=== PATIENT | female | born 1980 | race African-American/Black ===

== ENCOUNTER 2024-01-16 00:59 | Inpatient (IN) | payer MEDICAID ==
[~2024-01-16] VITALS: Ht 170.2 cm; Wt 80.9 kg
[2024-01-16] VITALS (10 sets, daily range): BP systolic 100–139; BP diastolic 58–74; PULSE 52–92; RESP 16–20; TEMP 97.7–99.1; O2SAT 97–100
--- NOTE | 2024-01-16 01:28 | ED.PDOC ---
History of Present Illness HPI Comments 43-year-old female who came to ER for abdominal pain. Patient states she woke up due to sudden onset sharp, constant, right upper quadrant abdominal pain, nonradiating. Had a single episode nausea and vomiting. States right upper quadrant is tender to touch, and worsens with movements and deep breathing. Patient is status post gastric sleeve, last May, status post C-sections. Chief Complaint: Abdominal pain Time Seen by MD: 01:28 Reviewed Notes: Nurses Notes Allergies: Coded Allergies: Ibuprofen (Verified Allergy, Unknown, 01/16/24) Latex (Verified Allergy, Unknown, 01/16/24) Information Source: Patient Mode of Arrival: Ambulatory Severity: Moderate Timing: Hours Duration: Since onset Prehospital treatment: None Past Medical History Past Medical History (Other): Chronic back pain, degenerative joint disease Surgical History: Surgical History (Other): Gastric sleeve [employer]OR OF [employer]ICAL SERVICES History: Denies all [employer] OF [employer]ICAL SERVICES Hx Family History Family History: Reviewed,noncontributory to illness Social History Smoker: Non-Smoker Alcohol: Denies ETOH Use Drugs: Denies Drug Use Lives In: Home Constitutional: denies: chills, diaphoresis, fatigue, fever, malaise, sweats, weakness, others EENTM: denies: blurred vision, double vision, ear bleeding, ear discharge, ear drainage, ear pain, ear ringing, eye pain, eye redness, hearing loss, mouth pain, mouth swelling, nasal discharge, nose bleeding, nose congestion, nose pain, photophobia, tearing, throat pain, throat swelling, voice changes, others Respiratory: denies: cough, hemoptysis, orthopnea, SOB at rest, shortness of breath, SOB with excertion, stridor, wheezing, others Cardiovascular: denies: chest pain, dizzy spells, diaphoresis, Dyspnea on exertion, edema, irregular heart beat, left arm pain, lightheadedness, palpitations, PND, syncope, others Gastrointestinal: reports: abdominal pain; denies: abdomen distended, blood streaked bowels, constipated, diarrhea, dysphagia, difficulty swallowing, hematemesis, melena, nausea, poor appetite, poor fluid intake, rectal bleeding, rectal pain, vomiting, others Genitourinary: denies: abnormal vagina bleeding, burning, dyspareunia, dysuria, flank pain, frequency, hematuria, incontinence, pain, , vagina discharge, urgency, others Neurological: denies: dizziness, fainting, headache, left sided numbness, left sided weakness, numbness, paresthesia, pre-existing deficit, right sided numbness, right sided weakness, seizure, speech problems, tingling, tremors, weakness, others Musculoskeletal: denies: back pain, gout, joint pain, joint swelling, muscle pain, muscle stiffness, neck pain, others Integumetry: denies: bruises, change in color, change in hair/nails, dryness, laceration, lesions, lumps, rash, wounds, others Allergic/Immunocompromised: denies: Difficulty Healing, Frequent Infections, Hives, Itching, others Hematologic/Lymphatic: denies: anemia, blood clots, easy bleeding, easy bruising, swollen glands, others Endocrine: denies: excessive hunger, excessive sweating, excessive thirst, excessive urination, flushing, intolerance to cold, intolerance to heat, unexplained weight gain, unexplained weight loss, others Psychiatric: denies: anxiety, bipolar disorder, depression, hopeless, panic disorder, schizophrenia, sleepless, suicidal, others Physical Exam General Appearance: No Apparent Distress, Normal HEENT: Normal ENT Inspection, Pharynx Normal, TMs Normal Neck: Full Range of Motion, Non-Tender, Normal, Normal Inspection Respiratory: Chest Non-Tender, Lungs Clear, No Accessory Muscle Use, No Respiratory Distress, Normal Breath Sounds Cardiovascular: No Edema, No JVD, No Murmur, No Gallop, Normal Peripheral Pulses, Regular Rate/Rhythm Breast Exam: Deferred Gastrointestinal: No Organomegaly, Non Tender, No Pulsatile Mass, Normal Bowel Sounds, Soft Genitalia: Deferred Pelvic: Deferred Rectal: Deferred Extremities: No calf tenderness, Normal capillary refill, Normal inspection, Normal range of motion, Non-tender, No pedal edema Musculoskeletal : Apperance: Normal Neurologic: Alert, lpn instructor II-XII nml as Tested, No Motor Deficits, Normal Affect, Normal Mood, No Sensory Deficits Cerebellar Function: Normal Reflexes: Normal Skin: Dry, Normal Color, Warm Lymphatic: No Adenopathy Was a procedure done? Was a procedure done?: No Differential Dx Considerations may include: Musculoskeletal pain, gastritis, gallstones X-Ray, Labs, Meds, VS Vital Signs Date Time Temp Pulse Resp B/P (MAP) Pulse Ox O2 Delivery O2 Flow Rate FiO2 11/23/24 08:00 54 18 98 Room Air* 0 01/16/24 06:44 58 16 108/67 (81) 100 01/16/24 04:17 70 16 100 Room Air* 0 21 01/16/24 04:17 70 16 113/76 (88) 100 01/16/24 01:08 97.5 71 16 110/74 (86) 100 Lab Test 01/16/24 01:40 01/16/24 01:14 Range/Units White Blood Count 8.6 4.4-10.8 10^3/uL Red Blood Count 4.04 4.0-5.20 10^6/uL Hemoglobin 11.4 L 12.2-16.2 g/dL Hematocrit 34.5 L 36.0-46.0 % Mean Corpuscular Volume 85.2 80.0-100.0 fL Mean Corpuscular Hemoglobin 28.2 28.0-32.0 pg Mean Corpuscular Hemoglobin Concent 33.1 32.0-36.0 g/dL Red Cell Distribution Width 16.3 H 11.8-14.3 % Platelet Count 252 140-450 10^3/uL Mean Platelet Volume 8.9 6.9-10.8 fL Neutrophils (%) (Auto) 49.2 37.0-80.0 % Lymphocytes (%) (Auto) 41.1 10.0-50.0 % Monocytes (%) (Auto) 6.2 0.0-12.0 % Eosinophils (%) (Auto) 2.8 0.0-7.0 % Basophils (%) (Auto) 0.7 0.0-2.0 % Neutrophils # (Auto) 4.2 1.6-8.6 10 ^3/uL Lymphocytes # (Auto) 3.5 0.4-5.4 10 ^3/uL Monocytes # (Auto) 0.5 0-1.3 10 ^3/uL Eosinophils # (Auto) 0.2 0-0.8 10 ^3/uL Basophils # (Auto) 0.1 0-0.2 10 ^3/uL Nucleated Red Blood Cells 0.1 % Sodium Level 142 136-145 mmol/L Potassium Level 3.9 3.5-5.1 mmol/L Chloride Level 111 H 98-107 mmol/L Carbon Dioxide Level 23 20-31 mmol/L Anion Gap 8 5-15 Blood Urea Nitrogen 9 9-23 mg/dL Creatinine 0.67 0.550-1.02 mg/dL Glomerular Filtration Rate Calc 113 >90 mL/min BUN/Creatinine Ratio 13.4 10.0-20.0 Serum Glucose 118 H 74-106 mg/dL Calcium Level 9.3 8.7-10.4 mg/dL Total Bilirubin 0.9 0.2-1.0 mg/dL Aspartate Amino Transferase (AST) 47 H 13-40 U/L Alanine Aminotransferase (ALT) 44 H 7-40 U/L Alkaline Phosphatase 64 46-116 U/L Total Protein 6.1 5.7-8.2 g/dL Albumin 4.1 3.2-4.8 g/dL Lipase 37 12-53 U/L Beta HCG, Quantitative 0.1 L 1.5-4.2 mIU/mL Urine Color Yellow Yellow Urine Clarity Turbid H Clear Urine pH 5.0 5.0-9.0 Urine Specific [place] 1.031 1.001-1.035 Urine Protein Trace H Negative Urine Ketones Trace Negative Urine Blood Negative Negative /uL Urine Nitrite Negative Negative Urine Bilirubin Negative Negative Urine Urobilinogen 3 H Negative mg/dL Urine Leukocyte Esterase Trace Negative /uL Urine RBC <1 0 - 4 /hpf Urine WBC 3 0 - 5 /hpf Urine Squamous Epithelial Cells Mod <5 /hpf Urine Bacteria None seen None Seen /hpf Urine Mucus Few None Seen Urine Glucose Normal Normal mg/dL Current Medications Medications (Trade) Dose Ordered Sig/Bolivar Route Start Time Stop Time Status Last Admin Ondansetron HCl (Zofran Po) 4 mg ONCE ONCE PO 01/16/24 01:30 01/16/24 01:31 DC 01/16/24 04:23 Famotidine (Pepcid Tablet) 40 mg ONCE ONCE PO 01/16/24 01:30 01/16/24 01:31 DC 01/16/24 04:23 Al Hydrox/Mg Hydrox/Simethicone (Maalox Plus) 15 ml ONCE ONCE PO 01/16/24 01:30 01/16/24 01:31 DC 01/16/24 04:23 Procedure: CT CT AB PEL WO CON-NO ORAL OR IV 01/16/2024 02:34 AM Indication: RIGHT FLANK PAIN Comparison Study: None available at time of dictation. Technique: Axial images of the abdomen and pelvis without contrast were obtained and reformatted in coronal and sagittal planes. All CT scans at this medical facility are performed using dose modulation techniques as appropriate to a performed exam including the following: Automated exposure control was utilized; adjustment of the MA and/or KV according to patient size; and use of iterative reconstruction technique. CT Dose: Dose-length product is 598.4 mGy*cm FINDINGS: Imaged portions of the lung bases appear unremarkable. Examination is limited given paucity of bowel gas and lack of intravenous contrast. The spleen, and pancreas appear unremarkable. The gallbladder is prominent measuring 4.2 cm in diameter. The common bile duct is prominent measuring 0.9 cm in the pancreatic head. Central intrahepatic biliary radicles appear mildly pro minent. Focal hypodensity in the left medial hepatic lobe measuring 1.4 cm, indeterminate. No evidence of renal calculus. 2.2 cm hypodensity in the left kidney likely a cyst. No evidence of hydronephrosis. There is a 2 mm punctate calculus along the posterior aspect of the urinary bladder just proximal to the expected location of the ureterovesicular junction No evidence of bowel obstruction or focal bowel wall thickening. Moderate intracolonic stool and gas. Postsurgical changes along the stomach. Bilateral cystic lesions in the adnexa measuring up to 3.9 cm on the left. No free pelvic fluid or evidence of free air. No suspicious osseous lesion. IMPRESSION: 1. Limited examination given paucity of intra-abdominal bowel gas and lack of intravenous contrast. 2. Prominent gallbladder and common bile duct without wall thickening or evidence of cholelithiasis by CT. Right upper quadrant ultrasound is recommended. 3. 2 mm calculus along the posterior right urinary bladder, indeterminate for ureteral calculus, however no secondary findings of hydronephrosis 4. Bilateral cystic adnexal lesions, may represent physiologic cysts, pelvic ultrasound is recommended. 5. Indeterminate hypodensity within the right hepatic lobe, CT with contrast would be of benefit. Time of 1ST Reevaluation: 01:21 Reevaluation 1ST: Unchanged Time of 2ND Reevaluation: 03:34 Reevaluation 2ND: Unchanged (patient continues to have pain, will admit for GB ultrasound and Gen Surg consult) Patient Education/Counseling: Diagnosis, Treatment Family Education/Counseling: No Family Present Departure 1 Departure Time of Disposition: 04:30 Impression: Primary Impression: Acute cholangitis due to calculus of bile duct with obstruction Disposition: ADMITTED INPATIENT Condition: Guarded Discharged With: Self Critical Care Note Critical Care Time?: No Stability Stability form required: No Heart Score Heart Score: Heart Score Response (Comments) Value History N/A 0 EKG N/A 0 Age N/A 0 Risk Factors N/A 0 Troponin N/A 0 Total 0 I personally scribed for CHARLA CAPELLAN MD ([email or web address]) on 01/16/24 at 01:28. Electronically submitted by Cirilo Valdez ([facility]). I personally scribed for CHARLA CAPELLAN MD ([email or web address]) on 01/16/24 at 05:08. Electronically submitted by Cirilo Valdez ([facility]). CHARLA CAPELLAN MD Jan 16, 2024 01:28
[2024-01-16 01:48] LABS: Basophils # (auto) 0.1 10 ^3/uL (0-0.2); Basophils % (auto) 0.7 % (0.0-2.0); Eosinophils # (auto) 0.2 10 ^3/uL (0-0.8); Eosinophils % (auto) 2.8 % (0.0-7.0); Hematocrit 34.5 % (36.0-46.0); Hemoglobin 11.4 g/dL (12.2-16.2); Lymphocytes # (auto) 3.5 10 ^3/uL (0.4-5.4); Lymphocytes % (auto) 41.1 % (10.0-50.0); Mean Corpuscular Hemoglobin 28.2 pg (28.0-32.0); Mean Corpuscular Hgb Conc. 33.1 g/dL (32.0-36.0); Mean Corpuscular Volume 85.2 fL (80.0-100.0); Monocytes # (auto) 0.5 10 ^3/uL (0-1.3); Monocytes % (auto) 6.2 % (0.0-12.0); Neutrophils # (auto) 4.2 10 ^3/uL (1.6-8.6); Neutrophils % (auto) 49.2 % (37.0-80.0); Nucleated Red Blood Cells % 0.1 %; Platelet Count (auto) 252 10^3/uL (140-450); Red Blood Cells 4.04 10^6/uL (4.0-5.20); Red Cell Distribution Width 16.3 % (11.8-14.3); White Blood Cell 8.6 10^3/uL (4.4-10.8)
[2024-01-16 01:48] LABS: Urine Bacteria None Seen /hpf (None Seen)
[2024-01-16 01:54] LABS: Urine Blood Negative /uL (Negative); Urine Clarity Turbid (Clear); Urine Color Yellow (Yellow); Urine Mucus FEW (None Seen); Urine Protein, UAD TRACE (Negative); Urine Specific Gravity 1.031 (1.001-1.035); Urine Urobilinogen 3 mg/dL (Negative); Urine WBC 3 /hpf (0 - 5)
[2024-01-16 02:06] LABS: Alanine Aminotransferase 44 U/L (7-40); Albumin 4.1 g/dL (3.2-4.8); Alkaline Phosphatase 64 U/L (46-116); Anion Gap 8 (5-15); Aspartate Aminotransferase 47 U/L (13-40); BUN/Creatinine Ratio 13.4 (10.0-20.0); Blood Urea Nitrogen 9 mg/dL (9-23); Calcium 9.3 mg/dL (8.7-10.4); Carbon Dioxide 23 mmol/L (20-31); Chloride 111 mmol/L (98-107); Glucose 118 mg/dL (74-106); Lipase 37 U/L (12-53); Potassium 3.9 mmol/L (3.5-5.1); Sodium 142 mmol/L (136-145)
[2024-01-16 02:07] LABS: Bilirubin, Total 0.9 mg/dL (0.2-1.0); Total Protein 6.1 g/dL (5.7-8.2)
[2024-01-16] MEDS: FAMOTIDINE 20 MG TAB PO ONE (04:23)
[2024-01-16] MEDS: ONDANSETRON ODT 4 MG TAB PO ONE (04:23)
[2024-01-16] MEDS: MAALOX PLUS or MAALOX 30 ML PO ONE (04:23)
--- NOTE | 2024-01-16 04:51 | DVH ---
Procedure: CT CT AB PEL WO CON-NO ORAL OR IV 01/16/2024 02:34 AM Indication: RIGHT FLANK PAIN Comparison Study: None available at time of dictation. Technique: Axial images of the abdomen and pelvis without contrast were obtained and reformatted in coronal and sagittal planes. All CT scans at this medical facility are performed using dose modulation techniques as appropriate t o a performed exam including the following: Automated exposure control was utilized; adjustment of th e MA and/or KV according to patient size; and use of iterative reconstruction technique. CT Dose: Dose-length product is 598.4 mGy*cm FINDINGS: Imaged portions of the lung bases appear unremarkable. Examination is limited given paucity of bowel gas and lack of intravenous contrast. The spleen, and pancreas appear unremarkable. The gallbladder is prominent measuring 4.[address] The common bile duct is prominent measuring 0.9 cm in the pancreatic head. Central intrahepatic biliary radicles appear mildly prominent. Focal hypodensity in the left medial hepatic lobe measuring 1.4 cm, indeterminate. No evidence of renal calculus. 2.2 cm hypodensity in the left kidney likely a cyst. No evidence of h ydronephrosis. There is a 2 mm punctate calculus along the posterior aspect of the urinary bladder ju st proximal to the expected location of the ureterovesicular junction No evidence of bowel obstruction or focal bowel wall thickening. Moderate intracolonic stool and gas. Postsurgical changes along the stomach. Bilateral cystic lesions in the adnexa measuring up to 3.9 cm on the left. No free pelvic fluid or ev idence of free air. No suspicious osseous lesion. IMPRESSION: 1. Limited examination given paucity of intra-abdominal bowel gas and lack of intravenous contrast. 2. Prominent gallbladder and common bile duct without wall thickening or evidence of cholelithiasis b y CT. Right upper quadrant ultrasound is recommended. 3. 2 mm calculus along the posterior right urinary bladder, indeterminate for ureteral calculus, pavon joanne no secondary findings of hydronephrosis 4. Bilateral cystic adnexal lesions, may represent physiologic cysts, pelvic ultrasound is recommende d. 5. Indeterminate hypodensity within the right hepatic lobe, CT with contrast would be of benefit. Comparison any prior examinations would be of benefit prior to additional imaging.
--- NOTE | 2024-01-16 07:44 | DVH ---
INDICATION: RUQ pain TECHNIQUE: Multiple real-time sonographic images were obtained of the right upper quadrant. COMPARISON: None FINDINGS: The liver appears normal in echotexture. There are small dependent gallstones without evidence of per icholecystic fluid or wall thickening. The common bile duct estimated 0.6 cm. The right kidney measures 11.6 cm and appears unremarkable. Intrahepatic IVC, visualized pancreas, an d abdominal aorta appear grossly unremarkable. IMPRESSION: 1. Cholelithiasis with prominent common bile duct. No pericholecystic fluid or wall thickening.
[2024-01-16] MEDS ORDERED: HYDROcodone-ACET 5/325MG TAB PO PRN (08:15)
[2024-01-16] MEDS ORDERED: ACETAMINOPHEN 325 MG TAB PO PRN (08:15)
[2024-01-16] MEDS ORDERED: DOCUSATE SOD 100 MG CAP PO PRN (08:15)
[2024-01-16] MEDS ORDERED: TEMAZEPAM 15 MG CAP PO PRN (08:15)
[2024-01-16] MEDS ORDERED: DEXTROSE (50%) 50ML SYRG IV PRN (08:15)
[2024-01-16] MEDS: metroNIDAZOLE 500MG/100ML 100 ML IV SCH (08:15)
[2024-01-16] MEDS ORDERED: LORazepam 0.5 MG TAB PO PRN (08:15)
[2024-01-16] MEDS: SODIUM CHLORIDE 0.9% 1,000 ML IV SCH (08:42)
--- NOTE | 2024-01-16 09:16 | DVHHP2 ---
History of Present Illness Reason for Visit: abdominal pain History of Present Illness 43 yo obese patient evaluated in the Ed with abdominal pain evaluation in the ed suggested suspected acute jane patient recommended for admission and evaluation and continued treatment Review of Systems Constitutional: Yes: Weakness; No: Fever, Chills, Sweats, Malaise, Other Eyes: No: Pain, Vision change, Conjunctivae inflammation, Eyelid inflammation, Other, Redness ENT: No: Ear pain, Ear discharge, Nose pain, Nose discharge, Nose congestion, Mouth pain, Mouth swelling, Throat pain, Throat swelling, Other Respiratory: No: Cough, Dry, Shortness of breath, SOB with excertion, Wheezing, Hemoptysis, Pleuritic Pain, Sputum, Wheezing, Other Cardiovascular: No: Chest Pain, Palpitations, Orthopnea, Paroxysmal Noc. Dyspnea, Edema, Lt Headedness, Other Gastrointestinal: Vomiting, Abdominal Pain; No: Nausea, Diarrhea, Constipation, Melena, Hematochezia, Other Genitourinary: No Dysuria, No Frequency, No Incontinence, No Hematuria, No Retention, No Other Musculoskeletal: No: other, neck pain, shoulder pain, arm pain, back pain, hand pain, leg pain, foot pain Skin: No: Rash, Lesions, Jaundice, Bruising, Other Neurological: No: Weakness, Numbness, Incoordination, Change in speech, Confusion, Seizures, Other Allergies: Coded Allergies: Ibuprofen (Verified Allergy, Unknown, 01/16/24) Latex (Verified Allergy, Unknown, 01/16/24) Medications Current Medications Medications Dose Ordered Sig/Bolivar Route Start Time Stop Time Status Last Admin Dose Admin Metronidazole 100 ml @ 100 mls/hr Q8HR IV 01/16/24 08:15 Famotidine 40 mg/ Sodium Chloride 104 ml @ 416 mls/hr ONCE IV 01/16/24 08:15 UNV Diagnostic Test (Pha) 1 strip Q6HR 01/16/24 12:00 Insulin Human Regular Q6HR SC 01/16/24 12:00 Dextrose 50 ml UD PRN IV 01/16/24 08:15 Sodium Chloride 1,000 ml @ 60 mls/hr [id number] IV 01/16/24 08:15 01/16/24 08:42 60 MLS/HR Lorazepam 0.5 mg Q6HP PRN PO 01/16/24 08:15 UNV Al Hydrox/Mg Hydrox/Simethicone 30 ml Q6HP PRN PO 01/16/24 08:15 UNV Docusate Sodium 100 mg BIDPRN PRN PO 01/16/24 08:15 Acetaminophen 650 mg Q6HP PRN PO 01/16/24 08:15 UNV Temazepam 15 mg QHSP PRN PO 01/16/24 08:15 UNV Acetaminophen/ Hydrocodone Bitart 1 tab Q4HP PRN PO 01/16/24 08:15 Ondansetron HCl 4 mg Q4HP PRN IV 01/16/24 08:15 Morphine Sulfate 2 mg Q4HPRN PRN IV 01/16/24 08:15 Exam Vital Signs Vital Signs Date Time Temp Pulse Resp B/P (MAP) Pulse Ox O2 Delivery O2 Flow Rate FiO2 01/16/24 08:54 50 18 116/75 (89) 100 01/16/24 04:17 Room Air* 0 21 01/16/24 01:08 97.5 General Appearance: Alert, Oriented X3, moderate distress HEENT: Atraumatic, PERRLA, EOMI Respiratory: Clear to auscultation, Normal air movement Cardiovascular: Regular rate, Normal S1 Abdominal: Normal bowel sounds, Soft, No tenderness, No masses Extremities: No clubbing, No cyanosis, No edema Skin: No rashes, No breakdown, No significant lesion Neuro: Normal gait, Normal speech Psych/Mental Status: Mood NL Labs/Xrays Labs Test 01/16/24 01:40 01/16/24 01:14 Range/Units White Blood Count 8.6 4.4-10.8 10^3/uL Red Blood Count 4.04 4.0-5.20 10^6/uL Hemoglobin 11.4 L 12.2-16.2 g/dL Hematocrit 34.5 L 36.0-46.0 % Mean Corpuscular Volume 85.2 80.0-100.0 fL Mean Corpuscular Hemoglobin 28.2 28.0-32.0 pg Mean Corpuscular Hemoglobin Concent 33.1 32.0-36.0 g/dL Red Cell Distribution Width 16.3 H 11.8-14.3 % Platelet Count 252 140-450 10^3/uL Mean Platelet Volume 8.9 6.9-10.8 fL Neutrophils (%) (Auto) 49.2 37.0-80.0 % Lymphocytes (%) (Auto) 41.1 10.0-50.0 % Monocytes (%) (Auto) 6.2 0.0-12.0 % Eosinophils (%) (Auto) 2.8 0.0-7.0 % Basophils (%) (Auto) 0.7 0.0-2.0 % Neutrophils # (Auto) 4.2 1.6-8.6 10 ^3/uL Lymphocytes # (Auto) 3.5 0.4-5.4 10 ^3/uL Monocytes # (Auto) 0.5 0-1.3 10 ^3/uL Eosinophils # (Auto) 0.2 0-0.8 10 ^3/uL Basophils # (Auto) 0.1 0-0.2 10 ^3/uL Nucleated Red Blood Cells 0.1 % Sodium Level 142 136-145 mmol/L Potassium Level 3.9 3.5-5.1 mmol/L Chloride Level 111 H 98-107 mmol/L Carbon Dioxide Level 23 20-31 mmol/L Anion Gap 8 5-15 Blood Urea Nitrogen 9 9-23 mg/dL Creatinine 0.67 0.550-1.02 mg/dL Glomerular Filtration Rate Calc 113 >90 mL/min BUN/Creatinine Ratio 13.4 10.0-20.0 Serum Glucose 118 H 74-106 mg/dL Calcium Level 9.3 8.7-10.4 mg/dL Total Bilirubin 0.9 0.2-1.0 mg/dL Aspartate Amino Transferase (AST) 47 H 13-40 U/L Alanine Aminotransferase (ALT) 44 H 7-40 U/L Alkaline Phosphatase 64 46-116 U/L Total Protein 6.1 5.7-8.2 g/dL Albumin 4.1 3.2-4.8 g/dL Lipase 37 12-53 U/L Beta HCG, Quantitative 0.1 L 1.5-4.2 mIU/mL Urine Color Yellow Yellow Urine Clarity Turbid H Clear Urine pH 5.0 5.0-9.0 Urine Specific [place] 1.031 1.001-1.035 Urine Protein Trace H Negative Urine Ketones Trace Negative Urine Blood Negative Negative /uL Urine Nitrite Negative Negative Urine Bilirubin Negative Negative Urine Urobilinogen 3 H Negative mg/dL Urine Leukocyte Esterase Trace Negative /uL Urine RBC <1 0 - 4 /hpf Urine WBC 3 0 - 5 /hpf Urine Squamous Epithelial Cells Mod <5 /hpf Urine Bacteria None seen None Seen /hpf Urine Mucus Few None Seen Urine Glucose Normal Normal mg/dL Assessment/Plan Assessment/Plan Admit to Med/Surg Suspected Acute Jane CT abd US Gallbladder IV hydration IV abx surgical evaluation prn pain management suspected surgical needs possible removal Plan discussed with: Patient My Orders Orders - KRISS FERNANDEZ MD Procedure Category Date Status Time Metronidazole PHA 01/16/24 In Process 500mg/100ml (Flagyl 08:15 Famotidine Injection PHA 01/16/24 Logged (Pepcid Injection) 08:15 * Surgical Consult CONS 01/16/24 Transmitted Glucose Blood PHA 01/16/24 In Process (Accu-Chek Comfort 12:00 Insulin R (Human) PHA 01/16/24 In Process (Insulin R) 12:00 Dextrose 50% Syringe PHA 01/16/24 In Process 08:15 Admit ADMIT 01/16/24 Transmitted 08:10 Code Status CODE 01/16/24 Transmitted 08:[address] [facility] 01/16/24 In Process 08:10 Review Orders [address] [facility] 01/16/24 In Process Adm. 08:10 Regular Diet DIET 01/16/24 Transmitted Breakfast Sodium Chloride 0.9% PHA 01/16/24 In Process 08:15 Lorazepam Tablet PHA 01/16/24 Logged (Ativan Tablet) 08:15 Alum & Mag PHA 01/16/24 Logged Hydrox-Simethicone 08:15 Docusate Sodium PHA 01/16/24 In Process Capsule (Colace 08:15 Acetaminophen Tablet PHA 01/16/24 Logged (Tylenol Tablet) 08:15 Temazepam (Restoril) PHA 01/16/24 Logged 08:15 Notify Md Of Changes [facility] 01/16/24 In Process From Base 08:[address] [facility] 01/16/24 In Process 08:10 Basic Metabolic Panel LAB 01/17/24 Verified 04:00 Complete Blood Count LAB 01/17/24 Verified 04:00 Patient Condition ORDERS 01/16/24 Transmitted 08:[address] [facility] 01/16/24 In Process 08:10 Hydrocodone-Acet PHA 01/16/24 In Process 5/325mg Tab ([place] 08:15 Ondansetron Hcl PHA 01/16/24 In Process (Zofran) 08:15 Morphine Sulfate PHA 01/16/24 In Process Injection 08:15 [employer] [place] 01/16/24 In Process 24 Hours 08:10 Oxygen By Nasal RT 01/16/24 Transmitted Cannula 08:10 Problem List: (1) Acute cholangitis due to calculus of bile duct with obstruction (2) Mildly obese Date of Service: Jan 16, 2024 Billing Provider: KRISS FERNANDEZ MD Common Visit Codes: [id number] INP/OBS CARE (HIGH) KRISS FERNANDEZ MD Jan 16, 2024 09:16
[2024-01-16] MEDS: InsuLIN REG 1unit/0.01ml Soln (100units/ml) SC SCH (12:00)
[2024-01-16] MEDS: ACCU-CHEK COMFORT CURVE STRIP VI SCH (12:20)
--- NOTE | 2024-01-16 20:58 | DVHPN2 ---
Assessment/Plan Assessment/Plan Progress note Subjective 53-year-old female admitted for acute cholecystitis Objective Physical exam Alert, oriented x3 PERRLA No JVD Clear breath sounds bilaterally S1-S2 regular rate and rhythm no murmur Abdomen tender, no rebound, guarding Moving all four extremities No lower extremity edema Imaging CTAP and RUQUS colelithiasis with prominent CBD Assessment and plan acute cholelithiasis with cholecystitis s/p bariatric surgery surgical consult ceft and flagyl NPO pain management IVF Replete electrolytes Diet NPO DVT prophylaxis ambulatory Plan discussed with: Patient Date of Service: Jan 16, 2024 Billing Provider: PEG THOMPSON MD Common Visit Codes: [id number] INP/OBS CARE(HIGH) PEG THOMPSON MD Jan 16, 2024 20:58
[2024-01-16] MEDS: MORPHINE SULFATE INJ 2 MG/ml SYRG IV PRN (21:52)
[2024-01-17] VITALS (8 sets, daily range): BP systolic 105–137; BP diastolic 51–73; PULSE 50–71; RESP 19–20; TEMP 97.6–98.4; O2SAT 99–100
[2024-01-17 07:25] LABS: Basophils # (auto) 0 10 ^3/uL (0-0.2); Basophils % (auto) 0.6 % (0.0-2.0); Eosinophils # (auto) 0.2 10 ^3/uL (0-0.8); Eosinophils % (auto) 2.8 % (0.0-7.0); Hematocrit 30.9 % (36.0-46.0); Hemoglobin 10.3 g/dL (12.2-16.2); Lymphocytes # (auto) 2.5 10 ^3/uL (0.4-5.4); Lymphocytes % (auto) 40.9 % (10.0-50.0); Mean Corpuscular Hemoglobin 28.7 pg (28.0-32.0); Mean Corpuscular Hgb Conc. 33.3 g/dL (32.0-36.0); Mean Corpuscular Volume 86.1 fL (80.0-100.0); Monocytes # (auto) 0.4 10 ^3/uL (0-1.3); Monocytes % (auto) 6.1 % (0.0-12.0); Neutrophils # (auto) 3.1 10 ^3/uL (1.6-8.6); Neutrophils % (auto) 49.6 % (37.0-80.0); Platelet Count (auto) 217 10^3/uL (140-450); Red Blood Cells 3.58 10^6/uL (4.0-5.20); Red Cell Distribution Width 16.4 % (11.8-14.3); White Blood Cell 6.2 10^3/uL (4.4-10.8)
[2024-01-17 07:51] LABS: Alanine Aminotransferase 89 U/L (7-40); Albumin 3.5 g/dL (3.2-4.8); Alkaline Phosphatase 64 U/L (46-116); Amylase 62 U/L (30-118); Anion Gap 6 (5-15); Aspartate Aminotransferase 38 U/L (13-40); Bilirubin, Total 1.3 mg/dL (0.2-1.0); Blood Urea Nitrogen 9 mg/dL (9-23); Carbon Dioxide 26 mmol/L (20-31); Chloride 111 mmol/L (98-107); Glucose 83 mg/dL (74-106); Potassium 4.3 mmol/L (3.5-5.1); Sodium 143 mmol/L (136-145); Total Protein 5.3 g/dL (5.7-8.2)
[2024-01-17 08:31] LABS: INR 1.09 (0.9-1.15); Partial Thromboplastin Time 27.9 SEC (24.5-34.5); Prothrombin Time 11.5 sec (9.3-11.8)
--- NOTE | 2024-01-17 10:01 | DVHINCON2 ---
Date of service: Jan 17, 2024 Allergies: Coded Allergies: Ibuprofen (Verified Allergy, Unknown, 01/16/24) Latex (Verified Allergy, Unknown, 01/16/24) Current Medications Current Medications Medications (Trade) Dose Ordered Sig/Bolivar Route PRN Reason Start Time Stop Time Status Last Admin Diagnostic Test (Pha) (Accu-Chek Comfort Curve T) 1 strip Q6HR 01/16/24 12:00 01/17/24 05:51 Insulin Human Regular (InsuLIN R) Q6HR SC 01/16/24 12:00 Vital Signs Vital Signs Date Time Temp Pulse Resp B/P (MAP) Pulse Ox O2 Delivery O2 Flow Rate FiO2 01/17/24 05:00 98.0 50 20 105/51 (69) 100 98.0 01/16/24 20:00 Room Air* 0 21 Labs/Diagnostic Data Labs Test 01/17/24 06:54 01/17/24 05:50 01/16/24 01:40 01/16/24 01:14 Range/Units White Blood Count 6.2 # 4.4-10.8 10^3/uL Red Blood Count 3.58 L 4.0-5.20 10^6/uL Hemoglobin 10.3 L 12.2-16.2 g/dL Hematocrit 30.9 #L 36.0-46.0 % Mean Corpuscular Volume 86.1 80.0-100.0 fL Mean Corpuscular Hemoglobin 28.7 28.0-32.0 pg Mean Corpuscular Hemoglobin Concent 33.3 32.0-36.0 g/dL Red Cell Distribution Width 16.4 H 11.8-14.3 % Platelet Count 217 140-450 10^3/uL Mean Platelet Volume 9.2 6.9-10.8 fL Neutrophils (%) (Auto) 49.6 37.0-80.0 % Lymphocytes (%) (Auto) 40.9 10.0-50.0 % Monocytes (%) (Auto) 6.1 0.0-12.0 % Eosinophils (%) (Auto) 2.8 0.0-7.0 % Basophils (%) (Auto) 0.6 0.0-2.0 % Neutrophils # (Auto) 3.1 1.6-8.6 10 ^3/uL Lymphocytes # (Auto) 2.5 0.4-5.4 10 ^3/uL Monocytes # (Auto) 0.4 0-1.3 10 ^3/uL Eosinophils # (Auto) 0.2 0-0.8 10 ^3/uL Basophils # (Auto) 0 0-0.2 10 ^3/uL Nucleated Red Blood Cells 0.0 % Prothrombin Time 11.5 9.3-11.8 sec Prothrombin Time INR 1.09 0.9-1.15 Activated Partial Thromboplast Time 27.9 24.5-34.5 SEC Sodium Level 143 136-145 mmol/L Potassium Level 4.3 3.5-5.1 mmol/L Chloride Level 111 H 98-107 mmol/L Carbon Dioxide Level 26 20-31 mmol/L Anion Gap 6 5-15 Blood Urea Nitrogen 9 9-23 mg/dL Creatinine 0.69 0.550-1.02 mg/dL Glomerular Filtration Rate Calc 112 >90 mL/min BUN/Creatinine Ratio 13.0 10.0-20.0 Serum Glucose 83 74-106 mg/dL Calcium Level 9.0 8.7-10.4 mg/dL Total Bilirubin 1.3 H 0.2-1.0 mg/dL Aspartate Amino Transferase (AST) 38 13-40 U/L Alanine Aminotransferase (ALT) 89 H 7-40 U/L Alkaline Phosphatase 64 46-116 U/L Total Protein 5.3 L 5.7-8.2 g/dL Albumin 3.5 3.2-4.8 g/dL Amylase Level 62 30-118 U/L POC Glucose 89 70-106 mg/dl Lipase 37 12-53 U/L Beta HCG, Quantitative 0.1 L 1.5-4.2 mIU/mL Urine Color Yellow Yellow Urine Clarity Turbid H Clear Urine pH 5.0 5.0-9.0 Urine Specific [place] 1.031 1.001-1.035 Urine Protein Trace H Negative Urine Ketones Trace Negative Urine Blood Negative Negative /uL Urine Nitrite Negative Negative Urine Bilirubin Negative Negative Urine Urobilinogen 3 H Negative mg/dL Urine Leukocyte Esterase Trace Negative /uL Urine RBC <1 0 - 4 /hpf Urine WBC 3 0 - 5 /hpf Urine Squamous Epithelial Cells Mod <5 /hpf Urine Bacteria None seen None Seen /hpf Urine Mucus Few None Seen Urine Glucose Normal Normal mg/dL Assessment 43 YEAR OLD FEMALE WITH ABDOMOINAL PAIN AND GALLSTONES "PROMINENT" BILE DUCTS NEED TO BE EVALUATED BY MEANS OF MRCP, PATIENT IS BEING FED?! NNEDS CMP ,HIDA PENDING Plan discussed with: Patient JACQUELYN CANCINO MD Jan 17, 2024 10:00
--- NOTE | 2024-01-17 15:48 | DVHPN2 ---
Subjective This is a follow up on 43-year-old female who lives has been with the hospital with a epigastric pain and right upper quadrant pain found to have cholelithiasis and dilated CBD. Patient currently came back from MRCP results are pending. Still complaining of abdominal pain. Denies any nausea vomiting. Reviewed: Care Plan Changes from previous H/P or p: No Changes Eyes: No Pain, No Vision change, No Conjunctivae inflammation, No Eyelid inflammation, No Other, No Redness ENT: No Ear pain, No Ear discharge, No Nose pain, No Nose discharge, No Nose congestion, No Mouth pain, No Mouth swelling, No Throat pain, No Throat swelling, No Other Cardiovascular: No Chest Pain, No Palpitations, No Orthopnea, No Paroxysmal Noc. Dyspnea, No Edema, No Lt Headedness, No Other Respiratory: No Cough, No Dry, No Shortness of breath, No SOB with excertion, No Wheezing, No Hemoptysis, No Pleuritic Pain, No Sputum, No Other Gastrointestinal: No Nausea; Vomiting, Abdominal Pain; No Diarrhea, No Constipation, No Melena, No Hematochezia, No Other Genitourinary: No Dysuria, No Frequency, No Incontinence, No Hematuria, No Retention, No Other Musculoskeletal: No other, No neck pain, No shoulder pain, No arm pain, No back pain, No hand pain, No leg pain, No foot pain Skin: No Rash, No Lesions, No Jaundice, No Bruising, No Other Objective Vitals Vital Signs Date Time Temp Pulse Resp B/P (MAP) Pulse Ox O2 Delivery O2 Flow Rate FiO2 01/17/24 13:00 98.0 50 19 117/72 (87) 100 98.0 01/16/24 20:00 Room Air* 0 21 Intake/Output Intake and Output 01/17/24 07:00 Intake Total 1275 ml Balance 1275 ml Intake Oral 525 ml IV Total 750 ml Exam HEENT pupils are reactive Neck is supple CV is S1-S2 regular rate and rhythm Respiratory viral clear GI posterior portion Extremity no 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 Medications Current Medications Medications Dose Ordered Sig/Bolivar Route Start Time Stop Time Status Last Admin Dose Admin Metronidazole 100 ml @ 100 mls/hr Q8HR IV 01/16/24 08:15 01/17/24 05:16 100 MLS/HR Diagnostic Test (Pha) 1 strip Q6HR 01/16/24 12:00 01/17/24 12:00 1 STRIP Insulin Human Regular Q6HR SC 01/16/24 12:00 Dextrose 50 ml UD PRN IV 01/16/24 08:15 Sodium Chloride 1,000 ml @ 60 mls/hr [id number] IV 01/16/24 08:15 01/17/24 06:47 60 MLS/HR Al Hydrox/Mg Hydrox/Simethicone 30 ml Q6HP PRN PO 01/16/24 08:15 Docusate Sodium 100 mg BIDPRN PRN PO 01/16/24 08:15 Acetaminophen 650 mg Q6HP PRN PO 01/16/24 08:15 Ondansetron HCl 4 mg Q4HP PRN IV 01/16/24 08:15 Morphine Sulfate 2 mg Q4HPRN PRN IV 01/16/24 08:15 01/16/24 21:52 2 MG Laboratory Results Laboratory Tests 01/17/24 06:54 Chemistry Test 01/17/24 06:54 Albumin 3.5 g/dL (3.2-4.8) Calcium Level 9.0 mg/dL (8.7-10.4) Total Protein 5.3 g/dL (5.7-8.2) L Coagulation Test 01/17/24 06:54 Prothrombin Time 11.5 sec (9.3-11.8) Prothrombin Time INR 1.09 (0.9-1.15) Activated Partial Thromboplast Time 27.9 SEC (24.5-34.5) LFT Test 01/17/24 06:54 Alanine Aminotransferase (ALT) 89 U/L (7-40) H Alkaline Phosphatase 64 U/L (46-116) Aspartate Amino Transferase (AST) 38 U/L (13-40) Total Bilirubin 1.3 mg/dL (0.2-1.0) H Urinalysis Test 01/16/24 01:14 Urine Color Yellow (Yellow) Urine Clarity Turbid (Clear) H Urine pH 5.0 (5.0-9.0) Urine Specific [place] 1.031 (1.001-1.035) Urine Protein Trace (Negative) H Urine Ketones Trace (Negative) Urine Blood Negative /uL (Negative) Urine Nitrite Negative (Negative) Urine Bilirubin Negative (Negative) Urine Urobilinogen 3 mg/dL (Negative) H Urine Leukocyte Esterase Trace /uL (Negative) Urine RBC <1 /hpf (0 - 4) Urine WBC 3 /hpf (0 - 5) Urine Squamous Epithelial Cells Mod /hpf (<5) Urine Bacteria None seen /hpf (None Seen) Urine Mucus Few (None Seen) Urine Glucose Normal mg/dL (Normal) Assessment/Plan Assessment/Plan 43-year-old female with no significant past medical history besides bariatric surgery initially was sent to the hospital with abdominal pain found to have 1. Abdominal pain with cholelithiasis with a dilated CBD rule out acute cholecystitis and acute choledocholithiasis 2. Symptomatic cholelithiasis 3. Dilated CBD rule out acute choledocholithiasis 4. Transaminitis -MRCP, HIDA scan follow up surgery consultation Plan discussed with: Patient Date of Service: Jan 17, 2024 Billing Provider: HAKAN CHRISTENSEN MD Common Visit Codes: [id number] INP/OBS CARE(MOD) HAKAN CHRISTENSEN MD Jan 17, 2024 15:48
--- NOTE | 2024-01-17 15:52 | DVH ---
MRCP Exam Date: 01/17/2024 02:35 PM Comparison: 01/16/2024 History: R/O CHOLEDOCHOLITHIASIS Technique: Multisequence multiplanar MRI images were obtained of the abomen. MRCP including 3D SPACE, Radial 2D slabs and SPACE 3D MIP images mL of Multihance was administered intravenously during this examination. Initial imaging is obtained without intravenous contrast. Findings: No significant pleural effusion. Adrenal glands, spleen and pancreas demonstrate no T2 hyperintense lesions. Kidneys demonstrate no hydronephrosis.m left renal T2 bright / cystic appearing lesion measuring 1.7 cm Stomach is partially distended. Small bowel loops are normal in caliber. No T2 hyperintense lesions within the liver. Liver enlarged measuring 22 cm craniocaudal. Cholelithia sis /sludge. Common bile duct measures 7 mm. Tiny amount of perihepatic fluid. Free pelvic fluid. Possible left ovarian cystic lesion. Soft tissue edema / anasarca. IMPRESSION: 1. Cholelithiasis /sludge. 2. No evidence of choledocholithiasis. 3. Free pelvic fluid. Possible left ovarian cystic lesion. Recommend pelvic ultrasound to further ronda luate. 4. Hepatomegaly. 5. Soft tissue edema / anasarca. 6. Tiny amount of perihepatic fluid.
--- NOTE | 2024-01-17 16:05 | MEDREC ---
[facility] ASP Intervention Section I [facility] ASP Intervention: Review courses of therapy (PLEASE CONSIDER ADDING CEFTRIAXONE FOR BROADER COVERAGE OF POTENTIAL INTRA-ABDOMINAL INFECTION) SRINIVAS MONTERO PHARMACIST Jan 17, 2024 16:05
--- NOTE | 2024-01-17 19:00 | DVH ---
INDICATION: pelvic free fluid TECHNIQUE: Multiple real-time grayscale transabdominal sonographic images along with color and duplex Doppler of the uterus and ovaries were obtained. COMPARISON: None FINDINGS: The uterus measures 9.6 x 5.5 x 6.8 cm. The endometrial stripe measures 0.3 cm. Right ovary measures 3.3 x 3.7 x 2.0 cm with normal Doppler color flow. Solitary simple cyst is seen in the right ovary measuring up to 1.8 cm. Left ovary measures 5.5 x 4.4 x 2.9 cm with normal Doppler color flow. Multiple left-sided simple ap pearing cysts, the largest measuring up to 3.3 cm IMPRESSION: 1. No acute findings identified. 2. Bilateral simple ovarian cysts measuring up to 1.8 cm on the right and up to 3.3 cm on the left.
[2024-01-18] VITALS (9 sets, daily range): BP systolic 101–141; BP diastolic 61–82; PULSE 44–65; RESP 15–20; TEMP 97.3–98.2; O2SAT 99–100
[2024-01-18 07:35] LABS: Alanine Aminotransferase 58 U/L (7-40); Albumin 3.2 g/dL (3.2-4.8); Alkaline Phosphatase 59 U/L (46-116); Anion Gap 7 (5-15); BUN/Creatinine Ratio 12.3 (10.0-20.0); Blood Urea Nitrogen 8 mg/dL (9-23); Calcium 8.7 mg/dL (8.7-10.4); Carbon Dioxide 24 mmol/L (20-31); Chloride 111 mmol/L (98-107); Glucose 80 mg/dL (74-106); Potassium 3.9 mmol/L (3.5-5.1); Sodium 142 mmol/L (136-145)
[2024-01-18 07:36] LABS: Aspartate Aminotransferase 19 U/L (13-40)
--- NOTE | 2024-01-18 11:04 | DVHPN2 ---
Progress Note Date Seen: Jan 18, 2024 Medical Necessity Reason Pt with a Central, PICC or Fol: No Objective vital signs Vital Sign Date Time Temp Pulse Resp B/P (MAP) Pulse Ox O2 Delivery O2 Flow Rate FiO2 01/18/24 09:02 97.6 48 16 103/64 (77) 100 97.6 01/17/24 20:00 Room Air* 0 21 Total Intake and Output 01/17/24 01/17/24 01/18/24 15:00 23:00 07:00 Intake Total 1200 ml 525 ml Balance 1200 ml 525 ml medications Current Medications Medications Dose Ordered Sig/Bolivar Route Start Time Stop Time Status Last Admin Dose Admin Metronidazole 100 ml @ 100 mls/hr Q8HR IV 01/16/24 08:15 01/18/24 05:52 100 MLS/HR Diagnostic Test (Pha) 1 strip Q6HR 01/16/24 12:00 01/18/24 05:54 1 STRIP Dextrose 50 ml UD PRN IV 01/16/24 08:15 Sodium Chloride 1,000 ml @ 60 mls/hr [id number] IV 01/16/24 08:15 01/18/24 02:16 60 MLS/HR Al Hydrox/Mg Hydrox/Simethicone 30 ml Q6HP PRN PO 01/16/24 08:15 Docusate Sodium 100 mg BIDPRN PRN PO 01/16/24 08:15 Acetaminophen 650 mg Q6HP PRN PO 01/16/24 08:15 Ondansetron HCl 4 mg Q4HP PRN IV 01/16/24 08:15 Morphine Sulfate 2 mg Q4HPRN PRN IV 01/16/24 08:15 01/17/24 21:07 2 MG laboratory and microbiology Laboratory Tests 01/18/24 06:30 01/17/24 06:54 Test 01/18/24 06:30 Range/Units Serum Glucose 80 74-106 mg/dL Problem List/Assessment/Plan Problem List/Assessment/Plan 01/18/24 HIDA scan reported to me as negative for cholecystitis, her WBC is normal, bilirubin was slightly elevated yesterday but it is bormal today, patient is insisting to have the operation today because "It may not be an emergency to you but for m"e it is because I am in f...ing pain all the time.Operation, risks and complications explained in detail. Plan discussed with: Patient JACQUELYN CANCINO MD Jan 18, 2024 11:04
[2024-01-18] MEDS: ceFAZolin 2 GM/D5W100ml 100 ML IV ONE (11:19)
[2024-01-18] MEDS ORDERED: fentaNYL CITRATE 100 MCG/2 ML VL ONE (11:47)
[2024-01-18] MEDS ORDERED: MIDAZOLAM HCL 2MG/2ML 2ml VIAL (1mg/ml) ONE (11:47)
[2024-01-18] MEDS ORDERED: MEPERIDINE HCL (50 MG/ML) 1 ML VIAL ONE (11:47)
--- NOTE | 2024-01-18 11:48 | DVH ---
CLINICAL INFORMATION: 43 years old, Female; rule out cholecystitis. Indication for prior ultrasound was right upper quadrant pain. TECHNIQUE: 4.2 mCi of Choletec were administered intravenously. Images of the upper abdomen were ob tained at 2 minute intervals up to a total time of 60 minutes. Lateral projection image also obtained at 65 minutes. COMPARISON: None FINDINGS: There is prompt gallbladder visualization. There is prompt excretion of activity from the biliary ductal system into the small bowel. There is no evidence of acute cholecystitis. IMPRESSION: No scintigraphic evidence of acute cholecystitis. No evidence of common bile duct obstruction.
[2024-01-18] MEDS ORDERED: DexAMETHasone SOD PHOS 10MG/1ML VIAL INJ ONE (11:49)
[2024-01-18] MEDS ORDERED: PROPOFOL 10 MG/ML 20 ML IV ONE (12:18)
[2024-01-18] MEDS ORDERED: ONDANSETRON HCL 4 MG/2 ML VIAL ONE (12:18)
[2024-01-18] MEDS ORDERED: SUGAMMADEX 200mg/2ml Vial (100MG/ML) IV ONE (12:18)
[2024-01-18] MEDS: LIDOCAINE W/ EPINEPHRINE 1% 20ML VIAL ONE (12:18)
[2024-01-18] MEDS: BUPIVACAINE 0.25% INJ 50ML VIAL ONE (12:18)
[2024-01-18] MEDS ORDERED: MIDAZOLAM HCL 2MG/2ML 2ml VIAL (1mg/ml) IV PRN (13:00)
[2024-01-18] MEDS: ONDANSETRON HCL 4 MG/2 ML VIAL IV ONE (13:00)
[2024-01-18] MEDS ORDERED: hydrALAZINE HCL 20 MG/ML VL IV PRN (13:00)
[2024-01-18] MEDS ORDERED: ePHEDrine SULFATE 50 MG/ML AMP IV PRN (13:00)
[2024-01-18] MEDS ORDERED: MORPHINE SULFATE 4 MG/ML SYR/VIAL IV PRN (13:00)
[2024-01-18] MEDS: HYDROmorphone HCL 2 MG/ML VL/or syr IV PRN (13:20)
[2024-01-18] MEDS: HYDROmorphone HCL 2 MG/ML VL/or syr ONE (13:25)
--- NOTE | 2024-01-18 14:43 | DVHOP ---
DATE OF SURGERY: 01/18/2024 PREOPERATIVE DIAGNOSES: Cholelithiasis, biliary colic. POSTOPERATIVE DIAGNOSES: Cholelithiasis, biliary colic. SURGEON: Elias Santiago MD PRODUCER: Nasim Nicole. ANESTHESIA: General endotracheal. ANESTHESIOLOGIST: Dr. Moffett. PROCEDURE: Laparoscopy, laparoscopic cholecystectomy. DESCRIPTION OF PROCEDURE: Under general endotracheal anesthesia, with the patient's skin prepped and draped supraumbilical incision was made and Veress needle inserted by the hanging drop technique to establish pneumoperitoneum to 15 mmHg pressure by insufflation with carbon dioxide. With the abdomen fully distended, the needle was removed and replaced with a 5 mm trocar port through which a 0-degree viewing laparoscope was inserted and under direct vision, 5 and 10 mm ports inserted through the right anterior axillary line at the level of the umbilicus and the subxiphoid skin in the midline respectively. Instrumentation was introduced and laparoscopy was performed revealing no obvious unexpected pathology. The gallbladder was placed on tension. The cystic duct was exceedingly long and the cystic duct, common duct junction was visualized. The cystic duct was traced into the hepaticocystic triangle skeletonized of scar tissues. Similarly, the cystic artery was identified, skeletonized circumferentially dissected. Both of these structures were then divided between metallic clips staying clear of the common duct and minimizing the potential for inadvertent injury to the common bile duct. Subsequently, the gallbladder was resected from its liver bed by electrocautery and traction. It was removed from the peritoneal cavity by placement in a specimen extraction bag, which was withdrawn through the subxiphoid 10 mm port site. The right upper quadrant was then profusely irrigated, irrigant was aspirated. Hemostasis was meticulously inspected and found to be complete. There was no evidence of bleeding at the termination of the procedure, either from the gallbladder fossa or from the port sites. Instrumentation was withdrawn. Pneumoperitoneum was evacuated. Fascial defect closed using ____ 2-0 Monocryl suture was used for approximation of the wound edges as were Steri-Strips and Dermabond glue. The patient remained stable throughout the procedure, left the operating room following an accurate needle and Sponge count. The patient's , Sherif was thoroughly informed at [phone]. Elias Santiago MD PF TID: [id number] RECEIPT: [id number]
[2024-01-18] MEDS: ceFAZolin 1GM/50ML 50 ML IV SCH (14:57)
[2024-01-18] MEDS: FAMOTIDINE INJECTION 40 MG in SODIUM CHL 0.9% 100 ML IV ONE (15:20)
--- NOTE | 2024-01-18 16:44 | DVHPN2 ---
Subjective This is a follow up on 43-year-old female who lives has been with the hospital with a epigastric pain and right upper quadrant pain found to have cholelithiasis and dilated CBD. Patient was status post laparoscopic cholecystectomy Reviewed: Care Plan Changes from previous H/P or p: No Changes Eyes: No Pain, No Vision change, No Conjunctivae inflammation, No Eyelid inflammation, No Other, No Redness ENT: No Ear pain, No Ear discharge, No Nose pain, No Nose discharge, No Nose congestion, No Mouth pain, No Mouth swelling, No Throat pain, No Throat swelling, No Other Cardiovascular: No Chest Pain, No Palpitations, No Orthopnea, No Paroxysmal Noc. Dyspnea, No Edema, No Lt Headedness, No Other Respiratory: No Cough, No Dry, No Shortness of breath, No SOB with excertion, No Wheezing, No Hemoptysis, No Pleuritic Pain, No Sputum, No Other Gastrointestinal: No Nausea; Vomiting, Abdominal Pain; No Diarrhea, No Constipation, No Melena, No Hematochezia, No Other Genitourinary: No Dysuria, No Frequency, No Incontinence, No Hematuria, No Retention, No Other Musculoskeletal: No other, No neck pain, No shoulder pain, No arm pain, No back pain, No hand pain, No leg pain, No foot pain Skin: No Rash, No Lesions, No Jaundice, No Bruising, No Other Objective Vitals Vital Signs Date Time Temp Pulse Resp B/P (MAP) Pulse Ox O2 Delivery O2 Flow Rate FiO2 01/18/24 16:37 97.5 47 16 122/72 (89) 99 97.5 01/18/24 12:35 Mask 7.0 01/18/24 08:00 21 Intake/Output Intake and Output 01/18/24 07:00 Intake Total 1725 ml Balance 1725 ml Intake Oral 1000 ml IV Total 725 ml # Voids 4 # Bowel Movements 2 Exam HEENT pupils are reactive Neck is supple CV is S1-S2 regular rate and rhythm Respiratory viral clear GI posterior portion Extremity no edema 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 Medications Current Medications Medications Dose Ordered Sig/B[place]ar Route Start Time Stop Time Status Last Admin Dose Admin Metronidazole 100 ml @ 100 mls/hr Q8HR IV 01/16/24 08:15 01/18/24 16:04 100 MLS/HR Diagnostic Test (Pha) 1 strip Q6HR 01/16/24 12:00 11/25/24 05:54 1 STRIP Dextrose 50 ml UD PRN IV 01/16/24 08:15 Sodium Chloride 1,000 ml @ 60 mls/hr [id number] IV 01/16/24 08:15 01/18/24 02:16 60 MLS/HR Al Hydrox/Mg Hydrox/Simethicone 30 ml Q6HP PRN PO 01/16/24 08:15 Docusate Sodium 100 mg BIDPRN PRN PO 01/16/24 08:15 Acetaminophen 650 mg Q6HP PRN PO 01/16/24 08:15 Ondansetron HCl 4 mg Q4HP PRN IV 01/16/24 08:15 Morphine Sulfate 2 mg Q4HPRN PRN IV 01/16/24 08:15 01/17/24 21:07 2 MG Cefazolin Sodium 50 ml @ 100 mls/hr Q8HR IV 01/18/24 14:00 01/18/24 14:57 100 MLS/HR Laboratory Results Laboratory Tests 01/17/24 06:54 01/18/24 06:30 Chemistry Test 01/18/24 06:30 Albumin 3.2 g/dL (3.2-4.8) Calcium Level 8.7 mg/dL (8.7-10.4) Total Protein 5.0 g/dL (5.7-8.2) L LFT Test 01/18/24 06:30 Alanine Aminotransferase (ALT) 58 U/L (7-40) H Alkaline Phosphatase 59 U/L (46-116) Aspartate Amino Transferase (AST) 19 U/L (13-40) Total Bilirubin 1.0 mg/dL (0.2-1.0) Urinalysis Test 01/16/24 01:14 01/18/24 00:00 Urine Color Yellow (Yellow) Urine Clarity Turbid (Clear) H Urine pH 5.0 (5.0-9.0) Urine Specific [place] 1.031 (1.001-1.035) Urine Protein Trace (Negative) H Urine Ketones Trace (Negative) Urine Blood Negative /uL (Negative) Urine Nitrite Negative (Negative) Urine Bilirubin Negative (Negative) Urine Urobilinogen 3 mg/dL (Negative) H Urine Leukocyte Esterase Trace /uL (Negative) Urine RBC <1 /hpf (0 - 4) Urine WBC 3 /hpf (0 - 5) Urine Squamous Epithelial Cells Mod /hpf (<5) Urine Bacteria None seen /hpf (None Seen) Urine Mucus Few (None Seen) Urine Glucose Normal mg/dL (Normal) Urine Test Negative (Negative) Assessment/Plan Assessment/Plan 43-year-old female with no significant past medical history besides bariatric surgery initially was sent to the hospital with abdominal pain found to have 1. Abdominal pain with cholelithiasis with a dilated CBD status post laparoscopic cholecystectomy 2. Symptomatic cholelithiasis status post laparoscopic cholecystectomy 3. Dilated CBD ruled out acute choledocholithiasis 4. Transaminitis -patient was status post laparoscopic cholecystectomy Pain meds as needed, discharge plan Plan discussed with: Patient Date of Service: Jan 18, 2024 Billing Provider: HAKAN CHRISTENSEN MD Common Visit Codes: [id number] INP/OBS CARE(MOD) HAKAN CHRISTENSEN MD Jan 18, 2024 16:44
[2024-01-18] MEDS ORDERED: ROCURONIUM 10MG/ML 10ML VIAL IV ONE (19:41)
[2024-01-18] MEDS: HYDROcodone-ACET 7.5/325MG TAB PO ONE (21:31)
[2024-01-19] MEDS: ONDANSETRON HCL 4 MG/2 ML VIAL IV PRN (00:20)
[2024-01-19 01:00] VITALS: BP 105/60; PULSE 45; RESP 19; TEMP 97.7; O2SAT 99
[2024-01-19 05:00] VITALS: BP 102/59; PULSE 49; RESP 17; TEMP 97.9; O2SAT 99
[2024-01-19] MEDS: MAALOX PLUS or MAALOX 30 ML PO PRN (05:15)
[2024-01-19 05:31] LABS: Basophils # (auto) 0.1 10 ^3/uL (0-0.2); Basophils % (auto) 0.6 % (0.0-2.0); Eosinophils # (auto) 0.1 10 ^3/uL (0-0.8); Eosinophils % (auto) 0.9 % (0.0-7.0); Hemoglobin 11.8 g/dL (12.2-16.2); Lymphocytes # (auto) 0.8 10 ^3/uL (0.4-5.4); Lymphocytes % (auto) 6.8 % (10.0-50.0); Mean Corpuscular Hemoglobin 27.9 pg (28.0-32.0); Mean Corpuscular Hgb Conc. 32.8 g/dL (32.0-36.0); Monocytes # (auto) 0.4 10 ^3/uL (0-1.3); Monocytes % (auto) 3.4 % (0.0-12.0); Neutrophils # (auto) 10.5 10 ^3/uL (1.6-8.6); Neutrophils % (auto) 88.3 % (37.0-80.0); Platelet Count (auto) 248 10^3/uL (140-450); Red Blood Cells 4.24 10^6/uL (4.0-5.20); Red Cell Distribution Width 16.1 % (11.8-14.3); White Blood Cell 11.9 10^3/uL (4.4-10.8)
[2024-01-19] MEDS: HYDROcodone-ACET 10/325MG TAB PO ONE (06:00)
[2024-01-19] MEDS: HYDROcodone-ACET 5/325MG TAB PO ONE (06:45)
[2024-01-19 08:00] VITALS: PULSE 63; RESP 20; O2SAT 99
[2024-01-19 09:00] VITALS: BP 107/58; PULSE 63; RESP 20; TEMP 97.8; O2SAT 99
--- NOTE | 2024-01-19 09:28 | DVHPN2 ---
Progress Note - Surgical Date Seen: Jan 19, 2024 Post op day Post op day: 1 Subjective Patient reports: No new complaints, Feels better Review of Systems: HEENT:Normal, CVS:Normal, RESPIRATORY:Normal, GI:Normal, :Normal, MSK:Normal, NEURO:Normal Objective Vital signs Vital Sign Date Time Temp Pulse Resp B/P (MAP) Pulse Ox O2 Delivery O2 Flow Rate FiO2 01/19/24 05:00 97.9 49 17 102/59 (73) 99 97.9 01/18/24 20:00 Room Air* 0 21 Total Intake and Output 01/18/24 01/18/24 01/19/24 15:00 23:00 07:00 Intake Total 100 ml 200 ml 1448 ml Balance 100 ml 200 ml 1448 ml Medications Current Medications Medications Dose Ordered Sig/Bolivar Route Start Time Stop Time Status Last Admin Dose Admin Metronidazole 100 ml @ 100 mls/hr Q8HR IV 01/16/24 08:15 01/19/24 05:17 100 MLS/HR Diagnostic Test (Pha) 1 strip Q6HR 01/16/24 12:00 01/19/24 05:31 1 STRIP Dextrose 50 ml UD PRN IV 01/16/24 08:15 Sodium Chloride 1,000 ml @ 60 mls/hr [id number] IV 01/16/24 08:15 01/19/24 05:27 60 MLS/HR Al Hydrox/Mg Hydrox/Simethicone 30 ml Q6HP PRN PO 01/16/24 08:15 01/19/24 05:15 30 ML Docusate Sodium 100 mg BIDPRN PRN PO 01/16/24 08:15 Acetaminophen 650 mg Q6HP PRN PO 01/16/24 08:15 Ondansetron HCl 4 mg Q4HP PRN IV 01/16/24 08:15 01/19/24 00:20 4 MG Morphine Sulfate 2 mg Q4HPRN PRN IV 01/16/24 08:15 01/17/24 21:07 2 MG Cefazolin Sodium 50 ml @ 100 mls/hr Q8HR IV 01/18/24 14:00 01/19/24 05:16 100 MLS/HR Laboratory Laboratory Tests 01/19/24 04:44 01/18/24 06:30 Test 01/18/24 06:30 Range/Units Serum Glucose 80 74-106 mg/dL Examination: GENERAL:Normal, HEENT:Normal, NECK:Normal, LUNGS:Normal, CVS:Normal, ABDOMEN:Normal, MSK:Normal, SKIN:Normal Problem List/Assessment/Plan Assessment and Plan abdomen soft, non distended, appropriately tender wounds clean dry and intact denies nausea or vomiting patient to ambulate advance diet as tolerated per surgery point of view ok to discharge patient to follow up in surgery clinic in two weeks My Orders My Orders Orders - GENE DIEHL NP Procedure Category Date Status Time Sequential [facility] 01/18/24 In Process Compression Device 12:22 Call/Page [facility] 01/18/24 In Process Hospitalist/Atten Fo 12:22 Ambulate Every 4hours [facility] 01/18/24 In Process 12:22 Abdominal Binder [facility] 01/18/24 In Process 12:22 Oxygen Via Cool Mist RT 01/18/24 Transmitted Mask 12:22 To Pacu For Recovery ORDERS 01/18/24 Transmitted 12:22 Cefazolin 1gm/50ml [facility] 01/18/24 In Process (Ancef) 14:00 Plan discussed with Plan discussed with: Patient, Other (Dr. Santiago) Visit Coding Surgery Date of Service if different f: Jan 19, 2024 Billing Provider: JACQUELYN SANTIAGO MD Surgery Visit Codes: [id number] INP/OBS CARE(MOD) GENE DIEHL NP Jan 19, 2024 09:28
[2024-01-19 13:00] VITALS: BP 128/87; PULSE 65; RESP 20; TEMP 98.4; O2SAT 100
[2024-01-19 17:00] VITALS: BP 143/73; PULSE 56; RESP 20; TEMP 98.2; O2SAT 100
[2024-01-19] MEDS ORDERED: HYDR-4902 PO (17:30)
[2024-01-19] MEDS ORDERED: AUG875T PO (17:30)
--- NOTE | 2024-01-19 17:34 | DVHDS2 ---
Discharge Summary Date of Admission Jan 16, 2024 at 08:10 Date of Discharge: Jan 19, 2024 Labs/Diagnostic Data: Laboratory Results Test 01/19/24 05:29 01/19/24 04:44 01/18/24 06:30 01/18/24 00:00 POC Glucose 112 mg/dl (70-106) White Blood Count 11.9 10^3/uL (4.4-10.8) Red Blood Count 4.24 10^6/uL (4.0-5.20) Hemoglobin 11.8 g/dL (12.2-16.2) Hematocrit 36.0 % (36.0-46.0) Mean Corpuscular Volume 85.0 fL (80.0-100.0) Mean Corpuscular Hemoglobin 27.9 pg (28.0-32.0) Mean Corpuscular Hemoglobin Concent 32.8 g/dL (32.0-36.0) Red Cell Distribution Width 16.1 % (11.8-14.3) Platelet Count 248 10^3/uL (140-450) Mean Platelet Volume 10.0 fL (6.9-10.8) Neutrophils (%) (Auto) 88.3 % (37.0-80.0) Lymphocytes (%) (Auto) 6.8 % (10.0-50.0) Monocytes (%) (Auto) 3.4 % (0.0-12.0) Eosinophils (%) (Auto) 0.9 % (0.0-7.0) Basophils (%) (Auto) 0.6 % (0.0-2.0) Neutrophils # (Auto) 10.5 10 ^3/uL (1.6-8.6) Lymphocytes # (Auto) 0.8 10 ^3/uL (0.4-5.4) Monocytes # (Auto) 0.4 10 ^3/uL (0-1.3) Eosinophils # (Auto) 0.1 10 ^3/uL (0-0.8) Basophils # (Auto) 0.1 10 ^3/uL (0-0.2) Nucleated Red Blood Cells 0.0 % Total Bilirubin 1.0 mg/dL (0.2-1.0) Sodium Level 142 mmol/L (136-145) Potassium Level 3.9 mmol/L (3.5-5.1) Chloride Level 111 mmol/L (98-107) Carbon Dioxide Level 24 mmol/L (20-31) Anion Gap 7 (5-15) Blood Urea Nitrogen 8 mg/dL (9-23) Creatinine 0.65 mg/dL (0.550-1.02) Glomerular Filtration Rate Calc 113 mL/min (>90) BUN/Creatinine Ratio 12.3 (10.0-20.0) Serum Glucose 80 mg/dL (74-106) Calcium Level 8.7 mg/dL (8.7-10.4) Aspartate Amino Transferase (AST) 19 U/L (13-40) Alanine Aminotransferase (ALT) 58 U/L (7-40) Alkaline Phosphatase 59 U/L (46-116) Total Protein 5.0 g/dL (5.7-8.2) Albumin 3.2 g/dL (3.2-4.8) Urine Test Negative (Negative) Test 01/17/24 06:54 01/16/24 01:40 01/16/24 01:14 Prothrombin Time 11.5 sec (9.3-11.8) Prothrombin Time INR 1.09 (0.9-1.15) Activated Partial Thromboplast Time 27.9 SEC (24.5-34.5) Amylase Level 62 U/L (30-118) Lipase 37 U/L (12-53) Beta HCG, Quantitative 0.1 mIU/mL (1.5-4.2) Urine Color Yellow (Yellow) Urine Clarity Turbid (Clear) Urine pH 5.0 (5.0-9.0) Urine Specific [place] 1.031 (1.001-1.035) Urine Protein Trace (Negative) Urine Ketones Trace (Negative) Urine Blood Negative /uL (Negative) Urine Nitrite Negative (Negative) Urine Bilirubin Negative (Negative) Urine Urobilinogen 3 mg/dL (Negative) Urine Leukocyte Esterase Trace /uL (Negative) Urine RBC <1 /hpf (0 - 4) Urine WBC 3 /hpf (0 - 5) Urine Squamous Epithelial Cells Mod /hpf (<5) Urine Bacteria None seen /hpf (None Seen) Urine Mucus Few (None Seen) Urine Glucose Normal mg/dL (Normal) Other Laboratory Tests 01/19/24 04:44 01/18/24 06:30 Brief Hx & Hospital Course: 43-year-old female with no significant past medical history besides bariatric surgery initially was sent to the hospital with abdominal pain found to have symptomatic cholelithiasis. Patient was ruled out for choledocholithiasis by negative MRCP. HIDA scan was negative but patient has a symptomatic cholelithiasis. General surgery did laparoscopic cholecystectomy patient currently stable to be discharged on p.o. pain meds and antibiotics. With close follow up as an outpatient with General surgery in 1-2 weeks. Condition at Discharge: Stable Final Diagnosis/Problems List 43-year-old female with no significant past medical history besides bariatric surgery initially was sent to the hospital with abdominal pain found to have 1. Abdominal pain with cholelithiasis with a dilated CBD status post laparoscopic cholecystectomy 2. Symptomatic cholelithiasis status post laparoscopic cholecystectomy 3. Dilated CBD ruled out acute choledocholithiasis 4. Transaminitis Discharge Disposition: Home SNF Discharge Will this Physician continue t: No Discharge Instruct/Medications Diet: Cardiac 2g Na,low cholest Activity: Light activity Activity comment: Light activity until you follow up with your General surgery in one week Follow Up/Referral: Follow up with General surgery in one week Medications: Augmentin, [place] Discharge Statement: "Patient was advised to return to the ER or call 911 if any headaches, dizziness, shortness of breath, chest pain, abdominal pain, bleeding, fevers, or worsening of medical condition. Patient was counseled about treatment plan, medications, possible side effects, patientverbalized understanding. All questions were answered to the best of my ability. This discharge took greater then 30 minutes in planning, reviewing documentation, counseling the patient, and discussing with other team members." ASSESSMENT ASSESSMENT Assessment 43-year-old female with no significant past medical history besides bariatric surgery initially was sent to the hospital with abdominal pain found to have 1. Abdominal pain with cholelithiasis with a dilated CBD status post laparoscopic cholecystectomy 2. Symptomatic cholelithiasis status post laparoscopic cholecystectomy 3. Dilated CBD ruled out acute choledocholithiasis 4. Transaminitis Date of Service: Jan 19, 2024 Billing Provider: HAKAN CHRISTENSEN MD Common Visit Codes: 75387-LBU/OBS DISCH DAY >30min HAKAN CHRISTENSEN MD Jan 19, 2024 17:34
[2024-01-19] MEDS ORDERED: AMLO1TAB22 PO (17:51)
[2024-01-19] MEDS ORDERED: ACE3T PO (17:51)
[2024-01-19] MEDS ORDERED: MULT-1018 PO (17:51)
[2024-01-19] MEDS ORDERED: DOCU-94 PO (17:51)
[2024-01-19] MEDS ORDERED: ERGO1CAP23 PO (17:51)
[2024-01-19] MEDS ORDERED: OMEP20TA PO (17:51)
[2024-01-19] MEDS ORDERED: FERR325T20 PO (17:51)
[2024-01-19] MEDS ORDERED: ONDA-155 PO (17:51)
== END 2024-01-19 19:42 | disposition home or self-care (01) | DRG 263 ==
LOC: ER 00:59 → OVERFLOW 08:10 → WEST WING 18:58
PROVIDERS: ADMIT Hospitalist; ATTEND Internal Medicine
PROC: 0FT44ZZ Resection of Gallbladder, Percutaneous Endoscopic Approach (ICD-10-PCS; principal; 2024-01-18 11:48)
DX: K80.42 Calculus of bile duct with acute cholecystitis without obstruction (principal); G89.29 Other chronic pain; Z88.6 Allergy status to analgesic agent; Z98.84 Bariatric surgery status; Z79.899 Other long term (current) drug therapy
CPT/HCPCS: 36415; 74176; 74181; 76705; 76856; 78226; 80053; 81001; 81025; 82150; 82247; 82962; 83690; 84702; 85025; 85610; 85730; 86850; 86900; 86901; G0378; J1100; J2250; J2405; J2704; J3490; Q0162

== ENCOUNTER 2024-04-05 19:52 | Emergency (ER) | payer MEDICAID ==
[~2024-04-05] VITALS: Ht 170.2 cm; Wt 76.8 kg
[~2024-04-05 19:52] MED LIST: ACE3T PO; AMLO1TAB22 PO; AUG875T PO; DOCU-94 PO; ERGO1CAP23 PO; FERR325T20 PO; HYDR-4902 PO; MULT-1018 PO; OMEP20TA PO; ONDA-155 PO
--- NOTE | 2024-04-05 19:59 | ED.PDOC ---
GI ASSESSMENT HPI Comments 43 y/o F, presents to the ED for CC abdominal pain. Patient states, she has been experiencing suprapubic abdominal pain x1day. Patient relays, having a cholecystectomy in December 2023; believes symptoms to be related to the procedure but is unsure. Patient denies dysuria, back pain, flank pain, or N/V/D. No other symptoms or modifying factors at this time. Time Seen by MD: 20:10 Reviewed Notes: Nurses Notes, Medications, Allergies Allergies: Coded Allergies: Ibuprofen (Verified Allergy, Unknown, 01/16/24) Latex (Verified Allergy, Unknown, 01/16/24) Home Meds Active Scripts Amoxicillin & Pot Clavulanate (AUGMENTIN TABLET) 875 Mg Tb, 875 MG PO BID for 5 Days, #10 TAB Prov:HAKAN CHRISTENSEN MD 01/19/24 Hydrocodone-Acetaminophen (Hydrocodone Bitartrate/AC 5-325 mg) 1 Tab Tab, 1 TAB PO Q8HP PRN, #10 TAB Prov:HAKAN CHRISTENSEN MD 01/19/24 Reported Medications Amlodipine Besylate (Amlodipine Besylate) 5 Mg Tab, 10 MG PO DAILY, MG 01/19/24 Acetaminophen W/ Codeine (Tylenol W/Cod #3) 1 Tab Tb, 1 TAB PO BIDPRN, TAB 01/19/24 Ferrous Sulfate (Ferosul) 325 Mg Tab, 325 MG PO DAILY, TAB 01/19/24 Multiple Vitamin (Multivitamins) Tab, 1 TAB PO DAILY, TAB 01/19/24 Omeprazole (Gnp Omeprazole) 20 Mg Tab, 40 MG PO PRN, TAB 01/19/24 Docusate Sodium (Colace) 100 Mg Cap, 100 MG PO BID, CAP 01/19/24 Ergocalciferol (VITAMIN D 53405 UNIT) 50,000 [place] Cp, 18775 UNIT PO QWEEKLY, CAP 01/19/24 Ondansetron HCl (Ondansetron) 4 Mg Tab, 4 MG PO Q8HPRN PRN for NAUSEA / VOMITING, TAB 01/19/24 Information Source: Patient Mode of Arrival: Ambulatory Timing: Days Duration: Since onset Prehospital treatment: None Quality: None Vomitus: None Stool: Normal Severity: Mild Recent: None Recent Hx of: None Pain Location: Suprapubic Modifying Factors: Nothing Associated sign and symptoms: None Past Medical History PAST MEDICAL HISTORY: HTN Surgical History: Cholecystectomy, Surgical History (Other): gastric bypass NEUROPHYSIOLOGIST History: Denies all NEUROPHYSIOLOGIST Hx Family History Family History: Reviewed,noncontributory to illness Social History Smoker: Non-Smoker Alcohol: Denies ETOH Use Drugs: Denies Drug Use Lives In: Home Constitutional: denies: chills, diaphoresis, fatigue, fever, malaise, sweats, weakness, others EENTM: denies: blurred vision, double vision, ear bleeding, ear discharge, ear drainage, ear pain, ear ringing, eye pain, eye redness, hearing loss, mouth pain, mouth swelling, nasal discharge, nose bleeding, nose congestion, nose pain, photophobia, tearing, throat pain, throat swelling, voice changes, others Respiratory: denies: cough, hemoptysis, orthopnea, SOB at rest, shortness of breath, SOB with excertion, stridor, wheezing, others Cardiovascular: denies: chest pain, dizzy spells, diaphoresis, Dyspnea on exertion, edema, irregular heart beat, left arm pain, lightheadedness, palpitations, PND, syncope, others Gastrointestinal: reports: abdominal pain; denies: abdomen distended, blood streaked bowels, constipated, diarrhea, dysphagia, difficulty swallowing, hematemesis, melena, nausea, poor appetite, poor fluid intake, rectal bleeding, rectal pain, vomiting, others Genitourinary: denies: abnormal vagina bleeding, burning, dyspareunia, dysuria, flank pain, frequency, hematuria, incontinence, pain, , vagina discharge, urgency, others Neurological: denies: dizziness, fainting, headache, left sided numbness, left sided weakness, numbness, paresthesia, pre-existing deficit, right sided numbn ess, right sided weakness, seizure, speech problems, tingling, tremors, weakness, others Musculoskeletal: denies: back pain, gout, joint pain, joint swelling, muscle pain, muscle stiffness, neck pain, others Integumetry: denies: bruises, change in color, change in hair/nails, dryness, laceration, lesions, lumps, rash, wounds, others Allergic/Immunocompromised: denies: Difficulty Healing, Frequent Infections, Hives, Itching, others Hematologic/Lymphatic: denies: anemia, blood clots, easy bleeding, easy bruising, swollen glands, others Endocrine: denies: excessive hunger, excessive sweating, excessive thirst, excessive urination, flushing, intolerance to cold, intolerance to heat, unexplained weight gain, unexplained weight loss, others Psychiatric: denies: anxiety, bipolar disorder, depression, hopeless, panic disorder, schizophrenia, sleepless, suicidal, others All Other Systems: Reviewed and Negative Physical Exam General Appearance: Mild Distress HEENT: Normal ENT Inspection, Pharynx Normal, TMs Normal Neck: Full Range of Motion, Non-Tender, Normal, Normal Inspection Respiratory: Chest Non-Tender, Lungs Clear, No Accessory Muscle Use, No Respiratory Distress, Normal Breath Sounds Cardiovascular: No Edema, No JVD, No Murmur, No Gallop, Normal Peripheral Pulses, Regular Rate/Rhythm Breast Exam: Deferred Gastrointestinal: No Organomegaly, Non Tender, No Pulsatile Mass, Normal Bowel Sounds, Soft Genitalia: Deferred Pelvic: Deferred Rectal: Deferred Extremities: No calf tenderness, Normal capillary refill, Normal inspection, Normal range of motion, Non-tender, No pedal edema Musculoskeletal : Apperance: Normal Neurologic: Alert, 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 Was a procedure done?: No GI differential Dx Differential Diagnosis: Cholangitis, Cholecystitis, Gastritis/PUD, Gastroenteritis, Electrolyte Imbalance, Food Poisoning, Bacterial, Viral X-Ray, Labs, Meds, VS Vital Signs Date Time Temp Pulse Resp B/P (MAP) Pulse Ox O2 Delivery O2 Flow Rate FiO2 04/05/24 20:03 98.7 84 16 125/78 (94) 99 Lab Test 04/05/24 21:15 04/05/24 20:07 Range/Units White Blood Count 7.9 4.4-10.8 10^3/uL Red Blood Count 3.82 L 4.0-5.20 10^6/uL Hemoglobin 10.7 L 12.2-16.2 g/dL Hematocrit 32.6 L 36.0-46.0 % Mean Corpuscular Volume 85.3 80.0-100.0 fL Mean Corpuscular Hemoglobin 28.0 28.0-32.0 pg Mean Corpuscular Hemoglobin Concent 32.8 32.0-36.0 g/dL Red Cell Distribution Width 15.9 H 11.8-14.3 % Platelet Count 275 140-450 10^3/uL Mean Platelet Volume 8.9 6.9-10.8 fL Neutrophils (%) (Auto) 48.9 37.0-80.0 % Lymphocytes (%) (Auto) 41.9 10.0-50.0 % Monocytes (%) (Auto) 5.8 0.0-12.0 % Eosinophils (%) (Auto) 2.4 0.0-7.0 % Basophils (%) (Auto) 1.0 0.0-2.0 % Neutrophils # (Auto) 3.9 1.6-8.6 10 ^3/uL Lymphocytes # (Auto) 3.3 0.4-5.4 10 ^3/uL Monocytes # (Auto) 0.5 0-1.3 10 ^3/uL Eosinophils # (Auto) 0.2 0-0.8 10 ^3/uL Basophils # (Auto) 0.1 0-0.2 10 ^3/uL Nucleated Red Blood Cells 0.1 % Sodium Level Pending Potassium Level Pending Chloride Level Pending Carbon Dioxide Level Pending Anion Gap Pending Blood Urea Nitrogen Pending Creatinine Pending Glomerular Filtration Rate Calc Pending BUN/Creatinine Ratio Pending Serum Glucose Pending Calcium Level Pending Total Bilirubin Pending Aspartate Amino Transferase (AST) Pending Alanine Aminotransferase (ALT) Pending Alkaline Phosphatase Pending Total Protein Pending Albumin Pending Lipase Pending Urine Color Yellow Yellow Urine Clarity Clear Clear Urine pH 5.5 5.0-9.0 Urine Specific [place] 1.036 H 1.001-1.035 Urine Protein 1+ H Negative Urine Ketones Trace Negative Urine Blood Negative Negative /uL Urine Nitrite Negative Negative Urine Bilirubin Negative Negative Urine Urobilinogen 3 H Negative mg/dL Urine Leukocyte Esterase Negative Negative /uL Urine RBC 1 0 - 4 /hpf Urine Microscopic WBC 2 0-5 /HPF Urine Squamous Epithelial Cells Few <5 /hpf Urine Bacteria None seen None Seen /hpf Urine Mucus Few None Seen Urine Glucose Normal Normal mg/dL CT ABD PEL: Findings: Evaluation of solid organs is limited due to lack of intravenous contrast use. Lung Bases: No abnormality demonstrated. Liver: Liver is normal in size. No focal lesions. Gallbladder and Biliary Tree: Interval cholecystectomy. No evidence of biliary ductal dilatation. Spleen: No abnormality demonstrated. Pancreas: No abnormality demonstrated. Adrenal Glands: No abnormality demonstrated. Kidneys: No abnormality demonstrated. No evidence of renal calculus or hy droureteronephrosis. Bladder: Non distended. Bowel: Stomach demonstrates post surgical changes but otherwise appears grossly unremarkable. No dilated or thick-walled loops of large or small bowel noted. Appendix not visualized. Ascites: Absent Lymphadenopathy: No evidence of lymphadenopathy. Abdominal Wall and Mesentery: Unremarkable. Vasculature: Unremarkable given lack of intravenous contrast. Pelvic Organs: Unremarkable. Musculoskeletal: No bony lesions or fracture. IMPRESSION: 1. No acute abdominal or pelvic findings. Radiation optimization: All CT scans at this facility use at least one of these dose optimization techniques: automated exposure control mA and/or kV adjustment per patient size (includes targeted exams where dose is matched to clinical indication) or iterative reconstruction. ATED BY: FELICIANO CORONA MD DICTATED DATE/TIME: 04/05/242054 SIGNED BY: FELICIANO CORONA MD SIGNED DATE/TIME: 04/05/242054 CC: The patient's CBC is within normal limits The urine test is negative The chemistry panel is within normal limits The patient will be discharged and will follow up with the primary care doctor The patient will return to the emergency department's condition worsens. Images Reviewed?: Images reviewed and evaluated by me Time of 1ST Reevaluation: 20:40 Reevaluation 1ST: Unchanged Patient Education/Counseling: Diagnosis, Treatment, Prognosis, Need For Follow Up Family Education/Counseling: No Family Present Additional Information - I reviewed the following notes from patient's past medical encounters: 01/16/24 DX: ACUTE CHOLECYSTITIS - The following tests were ordered, and results were reviewed by me: CBC, CMP, LIPASE, UA, CT ABD PEL - I reviewed and agreed with the following test results read by other provider: CT ABD PEL - I discussed treatments and results with medical personnel and: NONE Departure 1 Departure Time of Disposition: 22:07 Impression: Primary Impression: Nonspecific abdominal pain Disposition: HOME / SELF CARE / HOMELESS Condition: Fair Discharged With: Self Critical Care Note Critical Care Time?: No Stability Stability form required: No Heart Score Heart Score: Heart Score Response (Comments) Value History N/A 0 EKG N/A 0 Age N/A 0 Risk Factors N/A 0 Troponin N/A 0 Total 0 I personally scribed for ASHWINI TINOCO MD ([email or web address]) on 04/05/24 at 19:59. Electronically submitted by Kalina Luther ([email or web address]). I personally scribed for ASHWINI TINOCO MD ([email or web address]) on 04/05/24 at 20:00. Electronically submitted by Kalina Luther ([email or web address]). I personally scribed for ASHWINI TINOCO MD ([email or web address]) on 04/05/24 at 20:09. Electronically submitted by Kalina Luther ([email or web address]). I personally scribed for ASHWINI TINOCO MD ([email or web address]) on 04/05/24 at 20:18. Electronically submitted by Kalina Luther ([email or web address]). I personally scribed for ASHWINI TINOCO MD ([email or web address]) on 04/05/24 at 20:20. Electronically submitted by Kalina Luther ([email or web address]). I personally scribed for ASHWINI TINOCO MD ([email or web address]) on 04/05/24 at 21:05. Electronically submitted by Kalina Luther ([email or web address]). ASHWINI TINOCO MD Apr 05, 2024 19:59
[2024-04-05 20:27] LABS: Urine Bacteria None Seen /hpf (None Seen)
[2024-04-05 20:37] LABS: Urine Blood Negative /uL (Negative); Urine Clarity Clear (Clear); Urine Color Yellow (Yellow); Urine Mucus FEW (None Seen); Urine Protein, UAD 1+ (Negative); Urine Specific Gravity 1.036 (1.001-1.035); Urine Squamous Epithelial Cell FEW /hpf (<5); Urine Urobilinogen 3 mg/dL (Negative); Urine WBC 2 /HPF (0-5); Urine pH 5.5 (5.0-9.0)
--- NOTE | 2024-04-05 20:57 | DVH ---
Exam: CT CT AB PEL WO CON-NO ORAL OR IV History: pain Comparison Study: CT abdomen/pelvis 01/16/24 Technique: Multidetector spiral CT of the abdomen was performed from lung bases to pubic symphysis. Imaging was performed without IV contrast. Axial, coronal and sagittal multiplanar reformats were ob tained from the axial data set by the technologist. Radiation Dose : 1. Abdomen/Pelvis: CTDIvol [CTDIvol] mGy, DLP [DLP] mGy*cm. Findings: Evaluation of solid organs is limited due to lack of intravenous contrast use. Lung Bases: No abnormality demonstrated. Liver: Liver is normal in size. No focal lesions. Gallbladder and Biliary Tree: Interval cholecystectomy. No evidence of biliary ductal dilatation. Spleen: No abnormality demonstrated. Pancreas: No abnormality demonstrated. Adrenal Glands: No abnormality demonstrated. Kidneys: No abnormality demonstrated. No evidence of renal calculus or hydroureteronephrosis. Bladder: Non distended. Bowel: Stomach demonstrates post surgical changes but otherwise appears grossly unremarkable. No dila karyna or thick-walled loops of large or small bowel noted. Appendix not visualized. Ascites: Absent Lymphadenopathy: No evidence of lymphadenopathy. Abdominal Wall and Mesentery: Unremarkable. Vasculature: Unremarkable given lack of intravenous contrast. Pelvic Organs: Unremarkable. Musculoskeletal: No bony lesions or fracture. IMPRESSION: 1. No acute abdominal or pelvic findings. Radiation optimization: All CT scans at this facility use at least one of these dose optimization davi hniques: automated exposure control mA and/or kV adjustment per patient size (includes targeted exam s where dose is matched to clinical indication) or iterative reconstruction.
[2024-04-05 21:58] LABS: Basophils # (auto) 0.1 10 ^3/uL (0-0.2); Eosinophils # (auto) 0.2 10 ^3/uL (0-0.8); Eosinophils % (auto) 2.4 % (0.0-7.0); Hematocrit 32.6 % (36.0-46.0); Hemoglobin 10.7 g/dL (12.2-16.2); Lymphocytes # (auto) 3.3 10 ^3/uL (0.4-5.4); Lymphocytes % (auto) 41.9 % (10.0-50.0); Mean Corpuscular Hgb Conc. 32.8 g/dL (32.0-36.0); Mean Corpuscular Volume 85.3 fL (80.0-100.0); Monocytes # (auto) 0.5 10 ^3/uL (0-1.3); Monocytes % (auto) 5.8 % (0.0-12.0); Neutrophils # (auto) 3.9 10 ^3/uL (1.6-8.6); Neutrophils % (auto) 48.9 % (37.0-80.0); Nucleated Red Blood Cells % 0.1 %; Platelet Count (auto) 275 10^3/uL (140-450); Red Blood Cells 3.82 10^6/uL (4.0-5.20); Red Cell Distribution Width 15.9 % (11.8-14.3); White Blood Cell 7.9 10^3/uL (4.4-10.8)
[2024-04-05 22:17] LABS: Alanine Aminotransferase 16 U/L (7-40); Alkaline Phosphatase 73 U/L (46-116); BUN/Creatinine Ratio 13.5 (10.0-20.0); Bilirubin, Total 0.6 mg/dL (0.2-1.0); Blood Urea Nitrogen 10 mg/dL (9-23); Calcium 9.1 mg/dL (8.7-10.4); Glucose 90 mg/dL (74-106); Lipase 39 U/L (12-53); Sodium 141 mmol/L (136-145); Total Protein 6.2 g/dL (5.7-8.2)
[2024-04-05 22:22] LABS: Carbon Dioxide 24 mmol/L (20-31)
[2024-04-05 22:29] LABS: Aspartate Aminotransferase 13 U/L (13-40); Chloride 108 mmol/L (98-107); Potassium 3.5 mmol/L (3.5-5.1)
[2024-04-05 22:40] VITALS: BP 123/73; PULSE 64; RESP 17; TEMP 98.1; O2SAT 95
[2024-04-05] MEDS: ONDANSETRON ODT 4 MG TAB PO ONE (22:42)
[2024-04-05] MEDS: HYDROcodone-ACET 10/325MG TAB PO ONE (22:42)
[2024-04-05 23:08] LABS: Anion Gap 9 (5-15)
== END 2024-04-05 23:08 | disposition home or self-care (01) ==
LOC: ER 19:57
DX: R10.2 Pelvic and perineal pain (principal); I10 Essential (primary) hypertension; Z88.8 Allergy status to other drugs, medicaments and biological substances; Z88.6 Allergy status to analgesic agent; Z79.899 Other long term (current) drug therapy; Z90.49 Acquired absence of other specified parts of digestive tract; Z90.89 Acquired absence of other organs
CPT/HCPCS: 36415; 74176; 80053; 81001; 83690; 85025; 99284; Q0162